=== PATIENT | female | born 1935 | race Caucasian/White ===

== ENCOUNTER → 2017-06-10 | Outpatient (CLI) | payer MEDICARE ==
[~2017-06-10] MED LIST: DIPH25CA PO; DULO1CAP3 PO; ESTR0.62 VAGINAL; FERR325T18 PO; HYDR25TA5 PO; LORA-567 PO; OMEP20TA93 PO; SIMV10TA PO; VERA1TAB17 PO
--- NOTE | 2017-06-22 12:09 | RSPPFT ---
DATE OF PROCEDURE: 06/10/17 COMMENTS: Spirometry demonstrates an FEV1 of 1.3 at 87% of predicted, FVC of 1.9 at 94%, FEF 25-75 is 60% of predicted. Post-bronchodilator study demonstrated mild improvements in the FEF 25-75. Lung volumes demonstrated a raised RV/TLC ratio and airways resistance. Diffusion capacity is mildly reduced. Flow volume loops suggest an obstructive defect. IMPRESSION: 1. Mild obstructive disease. 2. Significant response to use of bronchodilator indicating reversibility. 3. Mild reduction in diffusion capacity.
== END ==
LOC: PHRSP 08:28
PROVIDERS: ATTEND Family Medicine
DX: J44.9 Chronic obstructive pulmonary disease, unspecified (principal)
CPT/HCPCS: 94060; 94726; 94729